=== PATIENT | female | born 1960 ===

== ENCOUNTER 2017-07-25 09:22 | Day surgery (SDC) | payer MEDICARE, OTHER ==
[2016-08-03 08:51] VITALS: BMI 32.1
[2017-07-25] MEDS ORDERED: Bupivacaine HCl 0.25% PF (10 ml) Inj ONE (10:44)
[2017-07-25] MEDS ORDERED: Lidocaine Hydrochloride 0 ML INJ ONE ×2 (10:45)
[2017-07-25] MEDS ORDERED: Iohexol 240 (50 ml) ONE (10:45)
[2017-07-25] MEDS ORDERED: MethylPREDNISolone Depo 40 mg/ml Inj ONE (10:48)
[2017-07-25] MEDS ORDERED: Lactated Ringer's 1,000 ML IV ONE ×3 (11:05→12:30)
[2017-07-25] MEDS ORDERED: Midazolam 2 MG/2 ML VIAL ONE (11:05)
--- NOTE | 2017-07-25 13:15 | RAD ---
PROCEDURE: Intraoperative Fluoroscopy. HISTORY: CERVICAL RADICULOPATHY FINDINGS: Fluoroscopic assistance was provided for cervical epidural injection.
[2017-07-25 14:17] VITALS: BP 135/82; PULSE 77; RESP 15; TEMP 98.2; O2SAT 99
== END 2017-07-25 14:38 | disposition home or self-care (01) ==
LOC: C.SDS 09:22
PROVIDERS: ATTEND Anesthesiology Pain Medicine
DX: M50.123 Cervical disc disorder at C6-C7 level with radiculopathy (principal); M47.893 Other spondylosis, cervicothoracic region; M51.26 Other intervertebral disc displacement, lumbar region; M47.817 Spondylosis without myelopathy or radiculopathy, lumbosacral region; M53.3 Sacrococcygeal disorders, not elsewhere classified; I10 Essential (primary) hypertension; E11.9 Type 2 diabetes mellitus without complications; J45.909 Unspecified asthma, uncomplicated; F17.200 Nicotine dependence, unspecified, uncomplicated; Z79.84 Long term (current) use of oral hypoglycemic drugs; Z79.82 Long term (current) use of aspirin
CPT/HCPCS: 62321; 76000; 82948; J1030; J2250; J3010; J7120; Q9966

== ENCOUNTER 2018-03-18 05:38 | Day surgery (SDC) | payer MEDICARE, OTHER ==
[2018-03-18] MEDS ORDERED: ceFAZolin 1 gm in NS 1 GM/100 ML BAG IVPB ONE (07:41)
[2018-03-18] MEDS ORDERED: Lidocaine Hydrochloride 5 ML INJ ONE ×2 (07:41→08:04)
[2018-03-18 07:44] VITALS: BMI 29.0
[2018-03-18] MEDS ORDERED: Midazolam 2 MG/2 ML VIAL ONE (08:03)
[2018-03-18] MEDS ORDERED: Propofol 10 mg/ml Inj (20 ML) ONE (08:04)
[2018-03-18] MEDS ORDERED: Bupivacaine HCl 0.5% PF (30 ml) Inj ONE (08:09)
[2018-03-18] MEDS ORDERED: Dexamethasone 4 mg/1 ml ONE (08:22)
[2018-03-18] MEDS ORDERED: MethylPREDNISolone Depo 40 mg/ml Inj ONE (08:23)
[2018-03-18] MEDS ORDERED: Oxycodone/Acetaminophen 5/325 mg Tab PO PRN ×2 (09:19)
[2018-03-18] MEDS ORDERED: HYDROmorphone 0.5 mg/0.5 ml ISec IVP PRN (09:24)
--- NOTE | 2018-03-18 09:24 | PCM.SURG1 ---
Surgeon's Initial Post Op Note - Surgeon's Notes Surgeon: Dr. Taye Patel, DPM Flag Decorator: Virgie Lopez, PGY-2 Type of Anesthesia: IV Sedation Anesthesia Administered By: Dr. Pratibha MD Pre-Operative Diagnosis: 1) Right hallux subungual exostosis. 2) Right hallux lateral nail plate ingrown toe nail. 3) Left ankle synovitis Operative Findings: See dictation Post-Operative Diagnosis: 1) Right hallux subungual exostosis. 2) Right hallux lateral nail plate ingrown toe nail. 3) Left ankle synovitis Operation Performed: 1) Right hallux subungual distal hemiphalygectomy. 2) Right hallux lateral nail avulsion with matrixectomy. 3) Left ankle corticosteroid injection. Specimen/Specimens Removed: Right hallux bone Estimated Blood Loss: EBL {In ML}: 0 Blood Products Given: N/A Drains Used: No Drains Post-Op Condition: Good Date of Surgery/Procedure: 03/18/18 Time of Surgery/Procedure: 09:20
[2018-03-18] MEDS ORDERED: Lactated Ringer's 1,000 ML IV SCH (09:30)
[2018-03-18 11:36] VITALS: RESP 18
[2018-03-18 12:17] VITALS: BP 102/66; PULSE 66; TEMP 97.7; O2SAT 97
--- NOTE | 2018-03-18 13:16 | RAD ---
PROCEDURE: Right Foot Radiographs. HISTORY: s/p right foot surgery COMPARISON: 01/29/2018. Preoperative study. FINDINGS: BONES: Postoperative findings 1st digit partially obscured by overlying dressing/bandage. JOINTS: Normal. SOFT TISSUES: Soft tissue swelling/ edema confined to the 1st digit. OTHER FINDINGS: Post osteotomy findings 5th digit. IMPRESSION: Satisfactory postoperative status.
--- NOTE | 2018-03-19 06:41 | OP ---
PROCEDURE DATE: 03/18/2018 PREOPERATIVE DIAGNOSES: 1. Right hallux subungual exostosis. 2. Right great toe nail plate, lateral border, ingrown. 3. Left ankle synovitis. POSTOPERATIVE DIAGNOSES: 1. Right hallux subungual exostosis. 2. Right great toe nail plate, lateral border, ingrown. 3. Left ankle synovitis. PROCEDURE: 1. Right hallux subungual exostectomy. 2. Right great toe lateral nail plate. Partial nail avulsion with matricectomy. 3. Left ankle corticosteroid injection. SURGEON: Taye Patel DPM ION EXCHANGE OPERATOR: Cali Lopez DPM, PGY-2 TYPE OF ANESTHESIA: MAC IV sedation with local. ANESTHESIA ADMINISTERED BY: Tremayne Mallory DO SPECIMEN: Right hallux bone. INDICATIONS: The patient is a 67-year-old female with the above-stated diagnoses. The patient has exhausted all conservative treatment options and is now in need of surgical intervention. The patient signed the surgical consent after careful explanation of risks, benefits, complications, and potential alternatives to the proposed surgical procedures. No guarantees were either given nor implied. All patient's questions were answered to her satisfaction. PREPARATION: The patient's n.p.o. status was confirmed prior to bringing the patient to the operating room. The patient was brought to the operating room and placed on the operating room table in a supine position. A well-padded pneumatic tourniquet was applied in the supramalleolar position to the patient's right ankle and set to 250 mmHg to be inflated once the procedures began. Once IV sedation was confirmed and achieved, the patient received a total of 5 mL of 1:1 mixture of 0.5% Marcaine plain to 1% lidocaine plain in a local block type fashion to the right great toe. Once local anesthetic was confirmed to have been achieved, the patient's right foot and left foot and ankle were then prepped and draped in the usual sterile manner. Right foot was exsanguinated. Tourniquet was inflated and the procedure began. DESCRIPTION OF PROCEDURE: 1. Right hallux subungual exostectomy. Attention was then directed to the distal aspect of the patient's right hallux where an approximately 2 cm linear transverse incision was made along the distal tuft of the great toe using #15 blade. This incision was cut down through the subcutaneous tissue layers. X-rays have been taken to identify and avoid all vital neurovascular structures. All bleeders were cauterized and chartered. At this time, a periosteal incision was made along the distal phalanx of the great toe, and using one dissection of periosteal elevators, it was resected back. At this time, central distal hallux, dorsal exostosis was noted with growth into the subcutaneous tissue layers and causing deformation in palpations through the dorsal hallux nail plate. At this time, a sagittal saw was introduced and distal one-third of the distal hallux nail plate was excised and passed to the operating room field. This portion of the specimen included the offending osteophytes. It was known that at this time that partial nail bed laceration occurred with resection. Surgical site was then flushed with copious amounts of sterile saline. Skin was reapproximated using full thickness, 4-0 Prolene in a simple suture type fashion. 2. Right great toe, lateral border ingrown toenail with matricectomy. Attention was then directed to the dorsal lateral aspect of patient's great nail plate where using a #15 blade and the double action bone cutter, lateral border nail plate was removed and passed off the operative field. At this time, using curette and cautery, lateral nail matrix was resected, passed off the operative field and then resultant piece was then serrated to matricectomy permanent. Surgical site was then flushed with copious amounts of sterile saline. Lateral nail epionychium was then reapproximated to lateral border of remaining nail plate using 4-0 Prolene in a simple suture type fashion. At that time, attention was redirected to distal nail plate where previous nail bed laceration was reviewed and a single suture was passed from resultant proximal nail bed to distal nail bed through nail plate. Reapproximation was thought to be stable. Surgical sites were then dressed with Xeroform, Betadine soaked 4 x 4 gauze, [place] and Coban. 3. Left ankle corticosteroid injection. Attention was then directed to the medial aspect of patient's left ankle joint where 2 mL of 1:1 mixture of dexamethasone 4 mg/mL to 0.5% Marcaine, was injected into the left ankle joint capsule without complication. Injection site was then dressed with Band-Aid. POSTOPERATIVE CONDITION: The patient tolerated the anesthesia and procedures well and was sent to the recovery room with vital signs stable and neurovascular status intact to the right foot. The patient had no complaints or complications. The patient will follow up with Dr. Patel in his office on an outpatient basis. Cali Lopez DPM [place]
== END 2018-03-18 11:55 | disposition home or self-care (01) ==
LOC: C.SDS 05:38
PROVIDERS: ATTEND Podiatrist
DX: M25.774 Osteophyte, right foot (principal); L60.0 Ingrowing nail; M89.9 Disorder of bone, unspecified; M65.9 Synovitis and tenosynovitis, unspecified
CPT/HCPCS: 11730; 20605; 28104; 73620; 82948; 88304; J0690; J1100; J1170; J2250; J2704; J3010